=== PATIENT | female | born 1985 | race African-American/Black ===

== ENCOUNTER 2016-08-20 20:46 | Emergency (ER) | payer MEDICAID ==
[~2016-08-20] VITALS: Ht 167.6 cm; Wt 90.7 kg
[2016-08-20 21:00] VITALS: BP 108/72
[2016-08-20 22:03] LABS: Urine RBC None Seen /hpf (0 - 4)
[2016-08-20 22:18] LABS: Urine Bilirubin Negative (Negative); Urine Blood Negative /uL (Negative); Urine Ca Oxalate Crystal FEW (None Seen); Urine Color Yellow (Yellow); Urine Glucose Normal (Normal); Urine Ketone TRACE (Negative); Urine Mucus FEW (None Seen); Urine Nitrite Negative (Negative); Urine Squamous Epithelial Cell MOD /hpf (<5); Urine Urobilinogen Normal (Negative); Urine pH 5.5 (5.0-8.0)
[2016-08-20 22:38] LABS: Albumin 3.6 g/dL (3.4-5.0); Alkaline Phosphatase 57 U/L (45-117); Anion Gap 9 (5-15); Aspartate Aminotransferase 13 U/L (15-37); BUN/Creatinine Ratio 20.3; Bilirubin, Total 0.3 mg/dL (0.2-1.0); Blood Urea Nitrogen 15 mg/dL (7-18); Calcium 8.8 mg/dL (8.5-10.1); Carbon Dioxide 22 mmol/L (21-32); Chloride 109 mmol/L (98-107); DEFINITIVE VIEW TRANSMISSION; Eosinophils # (auto) 0 uL; GFR African American 118 mL/min; GFR Non-African American 97 mL/min; Glucose 87 mg/dL (74-106); Hemoglobin 10.7 g/dL (12.2-16.2); Potassium 3.9 mmol/L (3.5-5.1); Red Cell Distribution Width 17.1 % (11.6-16.0); Sodium 140 mmol/L (136-145); Total Protein 7.9 g/dL (6.4-8.2)
[2016-08-20 22:45] LABS: Basophils # (auto) 0.1 uL; Basophils % (auto) 0.6 % (0.0-2.0); Hematocrit 35.4 % (36.0-46.0); Lymphocytes % (auto) 24.7 % (10.0-50.0); Mean Corpuscular Hgb Conc. 30.3 g/dL (32.0-36.0); Mean Corpuscular Volume 66.2 fL (80.0-100.0); Mean Platelet Volume 8.8 fL (7.4-10.4); Monocytes # (auto) 0.7 uL; Monocytes % (auto) 5.9 % (0.0-12.0); Neutrophils # (auto) 8.4 uL; Neutrophils % (auto) 68.8 % (37.0-80.0); Platelet Count (auto) 420 10^3/uL (140-450); White Blood Cell 12.2 10^3/uL (4.4-10.8)
[2016-08-20 23:20] LABS: Anisocytosis Slight; Microcytosis Marked; Platelet Estimate Adequate
[2016-08-20 23:21] LABS: Hypochromia Moderate
[2016-08-20 23:23] LABS: Hypersegmented Neutrophils Present
== END 2016-08-21 05:15 | disposition left against medical advice (07) ==
LOC: ER 20:48
DX: S09.90XA Unspecified injury of head, initial encounter (principal); Z53.21 Procedure and treatment not carried out due to patient leaving prior to being seen by health care provider; W22.01XA Walked into wall, initial encounter; Y93.89 Activity, other specified; Y99.8 Other external cause status; Y92.89 Other specified places as the place of occurrence of the external cause
CPT/HCPCS: 36415; 70450; 72125; 80053; 81001; 81025; 82962; 84484; 85025; 93005; G0434